=== PATIENT | female | born 1990 | race American Indian/Alaskan Native ===

== ENCOUNTER 2017-01-08 02:11 | Inpatient (IN) | payer MEDICAID, OTHER ==
[2017-01-08] MEDS ORDERED: Penicillin G Potassium 5 MILLUNITS in Sodium Chloride 0.9% 100 ML IV ONE (03:04)
[2017-01-08] MEDS: Lactated Ringers 1,000 ML IV SCH ×2 (03:18→05:22)
[2017-01-08] MEDS ORDERED: Ondansetron 4 MG/2 ML SDV IV PRN (04:19)
[2017-01-08] MEDS ORDERED: fentaNYL 100 MCG/2 ML SDV ONE (04:47)
--- NOTE | 2017-01-08 05:26 | PCM.SN ---
- Free Text/Narrative Note: Called to provide labor pain relief for this patient via intrathecal. After chart reviewed, consent signed, npo status obtained, proceeded. With patient in sitting position, sterile prep/drape. Skin wheal at L4-5 with 1% Lidocaine. LP X 1 at L4-5 with 24g pencan spinal needle. Positive, free flowing clear CSF. No heme, no paresthesia. Then 6mg mpf hyperbaric spinal 0.75% marcaine, 20mcg sufenta, 30mcg fentanyl, 0.4ml preservative free normal saline, plus epi wash intrathecal. Block to around T4 after. Maternal B/P and FHT remained stable after, and patient reported pain relief with subsequent contractions.
[2017-01-08] MEDS ORDERED: Misoprostol 400 MCG (4 X 100 MCG TAB) RECTAL PRN (05:27)
[2017-01-08] MEDS ORDERED: Sodium Chloride 0.9% 10 ML Syringe FLUSH PRN (05:27)
[2017-01-08] MEDS ORDERED: Lidocaine 1% 30 ML SDV INJECT PRN (05:27)
[2017-01-08] MEDS ORDERED: Methylergonovine 0.2 MG/1 ML Amp IM PRN (05:27)
[2017-01-08] MEDS ORDERED: Carboprost Tromethamine 250 MCG/1 ML Amp IM PRN (05:27)
[2017-01-08] MEDS ORDERED: Acetaminophen 325 MG Tab PO PRN ×2 (05:27→08:34)
[2017-01-08] MEDS ORDERED: Lactated Ringers 1,000 ML IV SCH (05:30)
[2017-01-08] MEDS: Oxytocin/Normal Saline 30 UNIT/500 ML BAG IV SCH ×2 (07:05→08:54)
[2017-01-08] MEDS ORDERED: Benzocaine/Menthol 20%-0.5% Spray 56 GM Canister TOP PRN (08:34)
[2017-01-08] MEDS ORDERED: Simethicone 80 MG Tab.Chew PO PRN (08:34)
--- NOTE | 2017-01-08 11:41 | HP ---
CHIEF COMPLAINT: Increased force and frequency of contractions. HISTORY OF PRESENT ILLNESS: A 26-year-old, 4, para 1-2-0-3, currently at 37 and 3/7th weeks of her based on 20-week ultrasound, presents to Labor and Delivery reporting contractions started around 1 o'clock this morning and were quite regular, they did not become stronger until she was here in the hospital. Because of fear of prior fairly quick labors in labor, she felt it was best to come to the hospital. No leakage of fluid or vaginal bleeding. No headaches, blurry vision, chest pain, shortness of breath, right upper quadrant pain, or change in her lower extremity edema. Nursing staff checked her on admission and she was 5 to 6 cm dilated. After monitoring, they have noted that she is much more uncomfortable with her contractions then she had been previously, and recheck of her cervix prior to intrathecal was 7 cm dilated per nurse's report. The plan was to let her have her intrathecal and then I would come in and rupture the bag of water for continued labor progression. OBSTETRICAL HISTORY: 1. On 04/26/2010; 37 weeks 2 days. Male. Vaginal delivery. Named Clovis. He is living. weight 2773 g. Reported threatened labor during that . Total 24 hours of labor she had gestational diabetes, presented to the hospital 4 cm dilated, notes that she was 35 and 6/7 weeks, but due date was 05/15/2010, so she was actually 37 and 2. The patient previously thought this was a 33 week gestation. Delivered at [facility] in [place], [place]. 2. On 03/29/2013; 36 weeks 4 days gestation. Male . Delivered by spontaneous vaginal delivery. Named Kemi. weight 2580 g. Complicated by labor, 7 hours of labor, he is living. Hospital records were reviewed confirming 36 and 4/7 weeks gestation. Mother had previously thought he was a 32 week baby. Had premature rupture of membranes, and she therefore underwent induction of labor with Pitocin. Delivered in [place], [place]. 3. Delivered 10/13/2014 at 34 weeks' gestation, female , delivered vaginally. Her name is Chet. weight 2490 g. She had premature rupture of membranes with that as well. Transferred to [place] for delivery and had that delivery under an epidural. scores of 8 and 9. Mother had reported that she had ruptured membranes for 1 week. Records do indicate that she was treated in the hospital with antibiotics and steroids and induction held off on until 34 weeks' gestation. This , first visit at 16 weeks' gestation. Medication exposures included vaginal clotrimazole, ranitidine, Tylenol, Claritin, and vitamin. Late cervical length ultrasound normal and she declined attempt of prolonging with vaginal progesterone. LABORATORY DATA: Blood type O positive. Rubella immune. GBS was negative x2. She did not have a flu vaccine. Antibody screen was negative. Wet prep showed 4+ BV, and 1+ yeast. HCV negative. RPR nonreactive. HIV negative. HBV negative. Urine culture negative. Gonorrhea and chlamydia negative. Quad screen normal. Glucose tolerance test of 151, three-hour test normal with 90, 131, 65, and 62. She was seen for threatened labor a couple of times this and given betamethasone. She did not fill the prescription for vaginal progesterone. She is requesting sterilization and is group B strep positive. PAST MEDICAL HISTORY: 1. Asthma, but has not needed an inhaler since 2009. 2. History of HSV 1. 3. History of kidney stones. FAMILY HISTORY: Both parents are alive and well. Reports her siblings are alive and well. No family history of any anesthesia problems, bleeding problems, thyroid disease, defects, clotting disorders, cancer, multiple births, cystic fibrosis, or seizures. SOCIAL HISTORY: She is single and lives with her significant other, Bello Villarreal. 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 They have 2 boys and 1 girl. No pets in the house. No use of any tobacco, alcohol, or drugs. They live [address] MEDICATIONS: Currently vitamin only. ALLERGIES: No known drug allergies. REVIEW OF SYSTEMS: As per the history of present illness. No fever chills, nausea, vomiting, diarrhea, constipation, skin rashes, neurological complaints or other specific issues. PHYSICAL EXAMINATION: General: Pleasant, well-appearing, 26-year-old female, status post intrathecal, so she is resting comfortably. Initial vitals; blood pressure 108/64, pulse of 80, afebrile. HEENT: Grossly unremarkable. Heart: Regular without obvious murmur. Lungs: Clear to auscultation bilaterally. Abdomen: Gravid, soft, fundus firm with contractions. Cervix: Vaginal examination per nurse; 5 to 6 cm, and 85% effaced. When I came in and saw her, 6 to 7 cm. Artificial rupture of membranes performed and clear, return of fluid. Patient also did have a void at that time which I would estimate to be around 200 mL. Extremities: No edema, erythema, or tenderness noted. Skin: No obvious lesions. ASSESSMENT: 1. A 37 and 3/7th weeks intrauterine based on 20-week ultrasound. 2. 4, para 1-2-0-3. 3. High risk with history of labor and delivery x2. 4. Late care. 5. Abnormal 1-hour glucose tolerance test, but normal 3-hour test. 6. Request for sterilization. 7. Asthma. 8. Group B strep positive. 9. Herpes simplex virus 1, history. PLAN: The patient has been admitted to the hospital and artificial rupture of membranes was performed as noted above. Anticipate spontaneous vaginal delivery in the next few hours. The patient was comfortable with this plan and her questions were answered. [facility] /[id number] EDA
[2017-01-08] MEDS: Docusate Sodium 100 MG Cap PO PRN (12:40)
[2017-01-08] MEDS: Ibuprofen 800 MG Tab PO PRN ×2 (12:40→21:07)
[2017-01-08] MEDS: Prenatal Multivitamin with Calcium/Folic Acid/Iron Tab PO SCH (12:40)
[2017-01-08] MEDS ORDERED: fentaNYL 100 MCG/2 ML SDV ITHECAL ONE (13:26)
--- NOTE | 2017-01-08 16:49 | DEL ---
DATE: 01/08/2017 PREPROCEDURE DIAGNOSES: 1. A 37 and 3/7 weeks by 20-week ultrasound. 2. 4, para 1-2-0-3. 3. Late care. 4. Group B streptococcus positive. 5. Blood type O positive and rubella immune. 6. History of labor and delivery x2. 7. Requests sterilization. 8. Asthma. 9. Herpes simplex virus 1, history. POSTPROCEDURE DIAGNOSES: 1. A 37 and 3/7 weeks by 20-week ultrasound. 2. 4, now para 2-2-0-4; and at hemorrhage, approximately, 600 mL of estimated blood loss felt due to uterine atony. 3. Late care. 4. Group B streptococcus positive. 5. Blood type O positive and rubella immune. 6. History of labor and delivery x2. 7. Requests sterilization. 8. Asthma. 9. Herpes simplex virus 1, history. 10. Status post spontaneous vaginal delivery. BRIEF HISTORY: A 26-year-old female admitted to the hospital this morning after having onset of contractions that are becoming stronger. She went from 5 to 7 cm dilated and then received her intrathecal, and artificial rupture of membranes was performed with return of clear fluid. Stage I was about 7 hours, and she pushed for only about 15 minutes prior to delivery. There were no complications. See admission history and physical for full details of her labor course. PROCEDURE IN DETAIL: With the patient in dorsal lithotomy position, she delivered a viable male in the OA position over intact perineum. was dried and initially not breathing, so mouth and nose were bulb suctioned. Baby's color remained pink, and he started to cry, so he was placed on mother's abdomen. After about 1 minute, three-vessel umbilical cord was doubly clamped and cut, and then, the baby was taken to the warmer for further evaluation and assessment. Cord blood sample was obtained, and then, placenta delivered by gentle cord traction and concomitant uterine massage intact. Labia and vagina inspected. There was only one small superficial laceration posteriorly. Mother continued to have heavy vaginal bleeding, and uterus was palpated to be firm and verified with bimanual massage. She continued to have passage of clots and brisk bleeding. With further inspection of the cervix, there was blood spring from the uterus despite it being firm. No cervical or high vaginal lacerations. Pitocin was turned up to 999, and dose of Methergine was given along with continued uterine massage. She did pass a couple of more clots, and then, the bleeding slowed very nicely. She was reinspected and found to be hemostatic and in good condition. ESTIMATED BLOOD LOSS: 600 mL. COMPLICATIONS: hemorrhage due to uterine atony, managed well. FINDINGS: Viable male infant. Weight 2845g, 6# 4oz. Apgars 6, 6, 7, 8 needed drying, stimulating, blow by O2 then did well after strong crying. DISPOSITION: Mother to stay in delivery room. Baby to go to the Nursery for further evaluation as he is having a little bit of trouble transitioning. MOD /[id number] MTDD
[2017-01-09] MEDS: Ibuprofen 800 MG Tab PO PRN ×3 (05:10→23:20)
--- NOTE | 2017-01-09 08:14 | PN ---
DATE: 01/09/2017 SUBJECTIVE: day #1, doing well. The patient is ambulating and tolerating a regular diet, voiding without difficulties. She has not yet had a bowel movement. Bleeding has been minimal. No chest pain or shortness of breath. Reports some abdominal discomfort from muscle soreness, but otherwise, no complaints elicited. Concerned about breast milk production being low as she is trying to breast feed her baby. Reports overall that is not going very well yet. She will defer her tubal ligation until after consultation with [employer] after her 6-week visit. She is actually entertaining the idea of the Essure procedure instead. OBJECTIVE: General: A healthy, well-appearing 26-year-old female. Vital Signs: Temperature is 97.9, pulse 74, blood pressure 108/60, respiratory rate of 16, and O2 saturations 97% on room air. Heart: Regular without murmur. Lungs: Clear bilaterally. Abdomen: Soft. Not overtly tender to palpation, and fundus is firm and below the umbilicus. Extremities: No edema, erythema, or tenderness noted. LABORATORY: Show hemoglobin down to 10.7 from a previous 11.9. ASSESSMENT: 1. Postvaginal delivery day #1, doing well. 2. Anemia of acute blood loss secondary to hemorrhage because of uterine atony. 3. Request for sterilization deferred until after her visit. PLAN: Continue normal cares. Anticipate discharge home tomorrow as long as all continues to go well. Her questions have been answered. [facility] /[id number]
--- NOTE | 2017-01-09 10:23 | PCM.POSTAN ---
POST ANESTHESIA ASSESSMENT - MENTAL STATUS Mental Status: Alert - VITAL SIGNS Pulse Rate: 75 SaO2: 96 Resp Rate: 16 Blood Pressure: 107/58 Temperature: 37.5 C - RESPIRATORY Respiratory Status: Respiratory Rate WNL - CARDIOVASCULAR CV Status: Pulse Rate WNL - GASTROINTESTINAL GI Status: No Symptoms - POST OP HYDRATION Hydration Status: Adequate & Stable - OBSERVATIONS Free Text/Narrative:: Pt without c/o. No PDPH, no PONV, no c/o back pain, no paresthesias. No post anesthesia complications noted.
[2017-01-09] MEDS: Docusate Sodium 100 MG Cap PO PRN (12:34)
[2017-01-09] MEDS: Prenatal Multivitamin with Calcium/Folic Acid/Iron Tab PO SCH (12:34)
[2017-01-10] MEDS: Docusate Sodium 100 MG Cap PO PRN (10:36)
[2017-01-10] MEDS: Prenatal Multivitamin with Calcium/Folic Acid/Iron Tab PO SCH (10:36)
[2017-01-10] MEDS: Ibuprofen 800 MG Tab PO PRN (10:36)
[2017-01-10 12:56] VITALS: BP 112/70
--- NOTE | 2017-01-11 09:39 | DISCH ---
ADMITTING DIAGNOSES: 1. 4, para 1-2-0-3. 2. 37 and 3/7 weeks gestation based on 20-week ultrasound. 3. High risk with history of labor and delivery. 4. Late care. 5. Abnormal 1-hour glucose tolerance test, normal 3-hour test. 6. Requesting sterilization. 7. Asthma. 8. Group B Streptococcus positive, blood type A positive, and she is immune. 9. History of herpes simplex virus 1. No outbreaks during . DISCHARGE DIAGNOSES: 1. 4, now para 2-2-0-4. 2. 37 and 3/7 weeks gestation based on 20-week ultrasound. 3. High risk with history of labor and delivery. 4. Late care. 5. Abnormal 1-hour glucose tolerance test, normal 3-hour test. 6. Requesting sterilization. 7. Asthma. 8. Group B Streptococcus positive, blood type A positive, and she is immune. 9. History of herpes simplex 1. No outbreaks during . 10.Anemia of acute blood loss. 11. hemorrhage due to uterine atony. 12.Status post spontaneous vaginal delivery. BRIEF HISTORY: A 26-year-old female who admitted to the hospital with spontaneous labor and progressing nicely. See admission history and physical for full details. She went on to a complete dilatation under intrathecal anesthesia and had artificial rupture of membranes performed at 7cm. She was in stage 1 for about 7 hours, pushed for less than 15 minutes, and placenta delivered in less than 5 minutes, was intact. However, she had persistent blood flow despite a firm uterus, so was given high-dose Pitocin and Methergine, which did control the bleeding. Labia, vagina, and cervix were inspected, and she only had a small superficial tear that did not need repair and bleeding was well controlled thereafter. HOSPITAL COURSE: Since the time of delivery, the patient has done well. She has been ambulating, tolerating regular diet, has not yet had a bowel movement, voiding without difficulties. Blood flow has been moderate to mild and improving. No chest pain or shortness of breath. No fever or chills. No worrisome symptoms at all. Laboratory shows admission hemoglobin of 11.9, discharge of 10.7. No symptoms of anemia. DISCHARGE CONDITION: Good. PHYSICAL EXAMINATION: Vital Signs: Temperature 97.9, pulse 83, blood pressure 116/67, respiratory rate 16, and O2 saturations 99% on room air. Heart: Regular without obvious murmur. Lungs: Clear to auscultation bilaterally. Abdomen: Soft and nontender. Fundus is firm and below the umbilicus. Extremities: No edema, erythema, or tenderness noted. DISPOSITION: Home with family. FOLLOWUP: She will need to make a 6-week exam appointment when she brings her baby in for first well-child check. INSTRUCTIONS: Routine post vaginal delivery instructions were provided including to return to the hospital if she has any troubles with increased bleeding, fever, chills, foul-smelling drainage discharge, increased pain or any other problems noted. MEDICATIONS: 1. Iron 325 mg twice daily. 2. Colace 100 mg twice daily as needed for pain. 3. Ibuprofen 600 mg every 6 hours as needed for pain. 4. Tylenol 650 mg every 6 hours as needed for pain. [facility] /[id number] EDA
== END 2017-01-10 18:45 | disposition home or self-care (01) | DRG 774 ==
LOC: DL.OBCHECK 02:11 → DL.OB 03:01 → OBSVTOIN 07:41 → DL.OB 07:41
PROVIDERS: ADMIT Family Medicine; ATTEND Family Medicine
PROC: 10E0XZZ Delivery of Products of Conception, External Approach (ICD-10-PCS; principal; 2017-01-08)
PROC: 4A1HXFZ Monitoring of Products of Conception, Cardiac Rhythm, External Approach (ICD-10-PCS; 2017-01-08)
PROC: 3E0R3BZ Introduction of Anesthetic Agent into Spinal Canal, Percutaneous Approach (ICD-10-PCS; 2017-01-08)
PROC: 10907ZC Drainage of Amniotic Fluid, Therapeutic from Products of Conception, Via Natural or Artificial Opening (ICD-10-PCS; 2017-01-08)
DX: O60.14X0 Preterm labor third trimester with preterm delivery third trimester, not applicable or unspecified (principal); O72.1 Other immediate postpartum hemorrhage; O99.834 Other infection carrier state complicating childbirth; O70.0 First degree perineal laceration during delivery; O99.824 Streptococcus B carrier state complicating childbirth; O99.814 Abnormal glucose complicating childbirth; O09.33 Supervision of pregnancy with insufficient antenatal care, third trimester; B00.9 Herpesviral infection, unspecified; J45.909 Unspecified asthma, uncomplicated; Z3A.37 37 weeks gestation of pregnancy; Z37.0 Single live birth
CPT/HCPCS: 01967; 36415; 85027; A9270-GY; J2210; J2405; J2540; J2590; J3010; J7050; J7120